=== PATIENT | male | born 1965 | race Caucasian/White ===

== ENCOUNTER 2017-05-08 07:50 | Day surgery (SDC) | payer MEDICARE, OTHER ==
[2017-05-08 09:22] LABS: POTASSIUM 4.8 mmol/L (3.5-5.1)
[2017-05-08] MEDS: HEPARIN 1000 UNITS/ML 10 ML INJ IRR (10:45)
[2017-05-08] MEDS ORDERED: HEPARIN 1000 UNITS/ML 10 ML INJ (10:47)
[2017-05-08] MEDS ORDERED: THROMBIN 5000 UNIT VIAL (10:47)
[2017-05-08] MEDS ORDERED: LIDOCAINE 1% (MPF) 30 ML INJ (10:47)
[2017-05-08] MEDS ORDERED: GELATIN SIZE 100 SPONGE (10:47)
[2017-05-08] MEDS ORDERED: MIDAZOLAM 1 MG/ML 2 ML INJ (10:48)
[2017-05-08] MEDS ORDERED: FENTAnyl 50 MCG/ML VIAL (10:53)
[2017-05-08] MEDS ORDERED: CEFAZOLIN 1 GM INJ (10:53)
[2017-05-08] MEDS ORDERED: PROPOFOL 40 ML (10:53)
[2017-05-08] MEDS ORDERED: ROPIVACAINE 0.2% 20 ML VIAL ×2 (10:53→12:57)
[2017-05-08] MEDS: LIDOCAINE 1% (MPF) 30 ML INJ INJ (11:00)
[2017-05-08] MEDS ORDERED: EPHEDrine SULFATE 50 MG/5 ML SYG ×3 (11:49→12:42)
[2017-05-08] MEDS ORDERED: ONDANSETRON 4 MG INJ ×2 (11:52→13:15)
[2017-05-08] MEDS ORDERED: METOCLOPRAMIDE 10 MG INJ (11:56)
[2017-05-08] MEDS: GELATIN SIZE 100 SPONGE TOP (12:13)
[2017-05-08] MEDS: HYDROmorphONE (0.2 MG/ML) 10ML SYG IV ×2 (13:15→13:39)
[2017-05-08] MEDS ORDERED: HYDROmorphONE (0.2 MG/ML) 10ML SYG IV (13:28)
[2017-05-08] MEDS ORDERED: OXYCODONE/ACETAMINOPHEN (5/325) TAB PO (13:30)
[2017-05-08] MEDS: ONDANSETRON 4 MG INJ IV (13:39)
== END 2017-05-08 14:20 | disposition home or self-care (01) ==
LOC: SDS 07:50
DX: T82.898A Other specified complication of vascular prosthetic devices, implants and grafts, initial encounter (principal); Y84.1 Kidney dialysis as the cause of abnormal reaction of the patient, or of later complication, without mention of misadventure at the time of the procedure; Y92.89 Other specified places as the place of occurrence of the external cause; I12.0 Hypertensive chronic kidney disease with stage 5 chronic kidney disease or end stage renal disease; N18.6 End stage renal disease; E11.9 Type 2 diabetes mellitus without complications
CPT/HCPCS: 36821; 82962; 84132